=== PATIENT | male | born 1985 | race African-American/Black ===

== ENCOUNTER 2018-06-03 12:21 | Emergency (ER) | payer OTHER ==
[~2018-06-03] VITALS: Ht 188 cm; Wt 93.0 kg
[~2018-06-03 12:21] MED LIST: NKM
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
[2018-06-03 12:24] VITALS: BP 135/65
--- NOTE | 2018-06-03 12:25 | NUR ---
ED Nurse Note: Belongings placed in locker 1 and 2.
[2018-06-03 12:46] LABS: BASOPHILS % (AUTO) 2.7 % (0.0-2.0); EOSINOPHILS % (AUTO) 0.1 % (0.0-3.0); HEMATOCRIT 42.7 % (42.0-52.0); HEMOGLOBIN 13.9 G/DL (14.2-18.0); LYMPHOCYTES % (AUTO) 13.6 % (20.0-45.0); MEAN CORPUSCULAR VOLUME 90 FL (80-99); MONOCYTES % (AUTO) 8.8 % (1.0-10.0); NEUTROPHILS % (AUTO) 74.8 % (45.0-75.0); PLATELET COUNT 165 K/UL (150-450); RED BLOOD COUNT 4.72 M/UL (4.70-6.10); RED CELL DISTRIBUTION WIDTH 12.2 % (11.6-14.8); WHITE BLOOD COUNT 6.8 K/UL (4.8-10.8)
--- NOTE | 2018-06-03 12:49 | NUR ---
ED Nurse Note: Urine collected and sent to lab.
--- NOTE | 2018-06-03 12:52 | NUR ---
patients mother (susie christopher) called to check on her son due to he was brought here from home tel #[phone]. per mother call her any time if we need any information
[2018-06-03 13:09] LABS: ANION GAP 13 mmol/L (5-15); BLOOD UREA NITROGEN 10 mg/dL (7-18); CALCIUM 9.7 MG/DL (8.5-10.1); CARBON DIOXIDE 26 MMOL/L (21-32); CHLORIDE 103 MMOL/L (98-107); CREATININE 1.3 MG/DL (0.55-1.30); SODIUM 142 MMOL/L (136-145)
[2018-06-03 13:12] LABS: ALANINE AMINOTRANSFERASE 188 U/L (12-78); ALBUMIN 3.8 G/DL (3.4-5.0); ALBUMIN/GLOBULIN RATIO 0.8 (1.0-2.7); ALKALINE PHOSPHATASE 65 U/L (46-116); ASPARTATE AMINO TRANSFERASE 141 U/L (15-37); BILIRUBIN,TOTAL 0.5 MG/DL (0.2-1.0)
[2018-06-03] MEDS ORDERED: Lidocaine 2% 20mg/ml/EPI 0.01mg/ml 20ml INJ ONE (13:15)
--- NOTE | 2018-06-03 13:59 | NUR ---
ED Nurse Note: Sitter at the bedside.
--- NOTE | 2018-06-03 14:15 | NUR ---
ED Nurse Note: Notified lab of add on order of urinalysis.
[2018-06-03 14:23] VITALS: BP 133/66
[2018-06-03 14:24] LABS: APPEARANCE,URINE CLEAR; BILIRUBIN, URINE NEGATIVE (NEGATIVE); COLOR,URINE YELLOW; GLUCOSE, URINE (UA) NEGATIVE (NEGATIVE); KETONES,URINE 1+ (NEGATIVE); LEUKOCYTE ESTERASE ,URINE 1+ (NEGATIVE); NITRITE,URINE NEGATIVE (NEGATIVE); PH,URINE 6 (4.5-8.0); PROTEIN,URINE 3+ (NEGATIVE); UROBILINOGEN,URINE 4 MG/DL (0.0-1.0)
--- NOTE | 2018-06-03 15:37 | Emergency Room Report ---
History of Present Illness General Chief Complaint: Behavioral Complaint Source: Patient, EMS Present Illness HPI 32 YO Male presents on a hold for SA after cutting his wrist/forearm with a knife. Pt. has 2 lacerations. Denies pain. Reports Anxiety history, not on any medications, no previous psychiatric or medical hospitalizations. Denies Drugs and Alcohol other than THC. Reports bleeding is controlled at this time. He states he was not attempting to kill himself. He states he was having an argument and that he did this for attention. Allergies: Coded Allergies: No Known Allergies (Unverified , 06/03/18) Patient History Past Medical History: see triage record Past Surgical History: none Pertinent Family History: none Immunizations: UTD Reviewed Nursing Documentation: PMH: Agreed; PSxH: Agreed Nursing Documentation-PMH Past Medical History: No History, Except For Hx Hypertension: Yes History Of Psychiatric Problem: Yes - ANXIETY Review of Systems All Other Systems: negative except mentioned in HPI Physical Exam Vital Signs Date Time Temp Pulse Resp B/P (MAP) Pulse Ox O2 Delivery O2 Flow Rate FiO2 06/03/18 12:15 97.7 90 18 137/61 98 Room Air 06/03/18 12:24 98 Sp02 EP Interpretation: reviewed, normal General Appearance: no apparent distress, alert, GCS 15, non-toxic Head: normocephalic, atraumatic Eyes: bilateral eye normal inspection, bilateral eye PERRL ENT: hearing grossly normal, normal voice Neck: full range of motion Respiratory: chest non-tender, lungs clear, normal breath sounds, speaking full sentences Cardiovascular #1: regular rate, rhythm, normal capillary refill Cardiovascular #2: 2+ radial (R), 2+ radial (L) Gastrointestinal: normal bowel sounds, non tender, soft Musculoskeletal: back normal, gait/station normal, normal range of motion, non- tender Neurologic: alert, oriented x3, responsive, motor strength/tone normal, sensory intact, speech normal, grossly normal Psychiatric: judgement/insight normal, memory normal, mood/affect normal, other - pt. cooperative And answering questions appropriately. Skin: normal color, no rash, warm/dry, well hydrated, laceration - two lacerations to the left forearm, one is 5cm in length and the second is 3cm in length. Lymphatic: no adenopathy Procedures Laceration/Wound Repair Laceration/Wound Repair #1: Consent: Verbal Wound Location: upper extremity - left forearm Wound's Depth, Shape: superficial, linear Wound Length (cm): 6 Wound Explored: clean Irrigated w/ Saline (ccs): 500 Anesthesia: Lidocaine w/ Epi Volume Anesthetic (ccs): 4 Wound Repaired With: sutures Suture Size/Type: 5:0 Number of Sutures: 5 Layer Closure?: No Sterile Dressing Applied?: Yes Splint Applied?: No Sling Applied?: No Patient Tolerated: Well Complications: None Laceration/Wound Repair #2: Consent: Verbal Wound Location: upper extremity - left forearm Wound's Depth, Shape: superficial, linear Wound Length (cm): 3 Wound Explored: clean Irrigated w/ Saline (ccs): 500 Anesthesia: Lidocaine w/ Epi Volume Anesthetic (ccs): 2 Wound Repaired With: sutures Suture Size/Type: 5:0 Number of Sutures: 2 Layer Closure?: No Sterile Dressing Applied?: Yes Splint Applied?: No Sling Applied?: No Patient Tolerated: Well Complications: None Medical Decision Making PA Attestation Dr. Bo is my supervising Physician whom patient management has been discussed with. Diagnostic Impression: Primary Impression: Behavioral change Additional Impression: Self-inflicted laceration of wrist Qualified Codes: S61.512A - Laceration without foreign body of left wrist, initial encounter ER Course 32 YO Male presents on a hold for SA after cutting his wrist/forearm with a knife. Pt. has 2 lacerations. Denies pain. Reports Anxiety history, not on any medications, no previous psychiatric or medical hospitalizations. Denies Drugs and Alcohol other than THC. Reports bleeding is controlled at this time. He states he was not attempting to kill himself. He states he was having an argument and that he did this for attention. Pt has flat affect. non-aggressive, normal though process, and normal memory. Ddx considered but are not limited to OD, SI/HI, psychosis, UTI, intoxication Vital signs: are WNL, pt. is afebrile H&PE are most consistent with behavioral/mental health issue With SA- Self inflicted lacerations ORDERS: -CBC, CMP: Unremarkable -UA: negative for infection -UDS: Positive for THC -Salicylates and Acetaminophen -WNL -Serum ETOH - No evidence of acute intoxication ED INTERVENTIONS: - Ativan 0.5mg PO once for anxiousness. LACERATION REPAIR : 6 5.0 Ethilon interrupted sutures. Left forearm. DISPOSITION: patient is medically cleared and will be under ED observation awaiting psychiatric evaluation for final disposition. On 515 HOLD --Pt. transferred to psych facility Labs Test 06/03/18 12:31 06/03/18 12:40 White Blood Count 6.8 K/UL (4.8-10.8) Red Blood Count 4.72 M/UL (4.70-6.10) Hemoglobin 13.9 G/DL (14.2-18.0) Hematocrit 42.7 % (42.0-52.0) Mean Corpuscular Volume 90 FL (80-99) Mean Corpuscular Hemoglobin 29.4 PG (27.0-31.0) Mean Corpuscular Hemoglobin Concent 32.5 G/DL (32.0-36.0) Red Cell Distribution Width 12.2 % (11.6-14.8) Platelet Count 165 K/UL (150-450) Mean Platelet Volume 6.8 FL (6.5-10.1) Neutrophils (%) (Auto) 74.8 % (45.0-75.0) Lymphocytes (%) (Auto) 13.6 % (20.0-45.0) Monocytes (%) (Auto) 8.8 % (1.0-10.0) Eosinophils (%) (Auto) 0.1 % (0.0-3.0) Basophils (%) (Auto) 2.7 % (0.0-2.0) Sodium Level 142 MMOL/L (136-145) Potassium Level 4.0 MMOL/L (3.5-5.1) Chloride Level 103 MMOL/L (98-107) Carbon Dioxide Level 26 MMOL/L (21-32) Anion Gap 13 mmol/L (5-15) Blood Urea Nitrogen 10 mg/dL (7-18) Creatinine 1.3 MG/DL (0.55-1.30) Estimat Glomerular Filtration Rate > 60 mL/min (>60) Glucose Level 119 MG/DL (74-106) Calcium Level 9.7 MG/DL (8.5-10.1) Total Bilirubin 0.5 MG/DL (0.2-1.0) Aspartate Amino Transf (AST/SGOT) 141 U/L (15-37) Alanine Aminotransferase (ALT/SGPT) 188 U/L (12-78) Alkaline Phosphatase 65 U/L (46-116) Total Protein 8.6 G/DL (6.4-8.2) Albumin 3.8 G/DL (3.4-5.0) Globulin 4.8 g/dL Albumin/Globulin Ratio 0.8 (1.0-2.7) Salicylates Level 2.3 ug/mL (2.8-20) Acetaminophen Level < 2 MCG/ML (10-30) Serum Alcohol < 3 mg/dL Urine Color Yellow Urine Appearance Clear Urine pH 6 (4.5-8.0) Urine Specific Ivor 1.015 (1.005-1.035) Urine Protein 3+ (NEGATIVE) Urine Glucose (UA) Negative (NEGATIVE) Urine Ketones 1+ (NEGATIVE) Urine Blood 4+ (NEGATIVE) Urine Nitrite Negative (NEGATIVE) Urine Bilirubin Negative (NEGATIVE) Urine Urobilinogen 4 MG/DL (0.0-1.0) Urine Leukocyte Esterase 1+ (NEGATIVE) Urine RBC 2-4 /HPF (0 - 0) Urine WBC 0-2 /HPF (0 - 0) Urine Squamous Epithelial Cells Occasional /LPF Urine Amorphous Sediment Few /LPF (NONE) Urine Bacteria Few /HPF (NONE) Urine Mucus Occasional /LPF Urine Opiates Screen Negative (NEGATIVE) Urine Barbiturates Screen Negative (NEGATIVE) Phencyclidine (PCP) Screen Negative (NEGATIVE) Urine Amphetamines Screen Negative (NEGATIVE) Urine Benzodiazepines Screen Negative (NEGATIVE) Urine Cocaine Screen Negative (NEGATIVE) Urine Marijuana (THC) Screen Positive (NEGATIVE) Last Vital Signs Date Time Temp Pulse Resp B/P (MAP) Pulse Ox O2 Delivery O2 Flow Rate FiO2 06/03/18 14:23 97.6 88 20 133/66 98 Room Air 98 Disposition: XFER TO PSYCH HOSP/UNIT Condition: Stable Breana Powers Jun 03, 2018 15:37
[2018-06-03] MEDS ORDERED: LORazepam 0.5mg tab ORAL ONE (17:15)
[2018-06-03 17:26] VITALS: BP 132/66
--- NOTE | 2018-06-03 18:07 | NUR ---
ED Nurse Note: Gave telephone report to RICHARD Tyler from [facility]. Waiting for transport.
--- NOTE | 2018-06-03 18:21 | NUR ---
ED Nurse Note: Gave verbal report to [facility].
--- NOTE | 2018-06-03 18:33 | NUR ---
ED Nurse Note: Pt left via [facility] for [facility]. Left ER w/ all belongings. No acute distress noted.
[2018-06-03 18:34] VITALS: BP 133/60
== END 2018-06-03 18:35 ==
LOC: EDBD 12:21 → EMR 16:38
DX: S61.512A Laceration without foreign body of left wrist, initial encounter (principal); F41.9 Anxiety disorder, unspecified; I10 Essential (primary) hypertension; X78.1XXA Intentional self-harm by knife, initial encounter; Y92.9 Unspecified place or not applicable; R46.89 Other symptoms and signs involving appearance and behavior
CPT/HCPCS: 12004; 36415; 80053; 80307; 81003; 85025; 99284; G0480; 80329